=== PATIENT | female | born 1955 | race Caucasian/White ===

== ENCOUNTER 2017-11-24 18:28 | Emergency (ER) | payer OTHER ==
[~2017-11-24] VITALS: Ht 157.5 cm; Wt 84.8 kg
[~2017-11-24 18:28] MED LIST: ATENOLOL25 MG; BENTYL10 MG/ML; FLAGYL375 MG; FLOMAX; KLONOPIN2 MG/TAB; NORVASC5 MG; PROTONIX20 MG
[2017-11-24] MEDS ORDERED: ALDACTAZIDE 251 EACH (19:31)
[2017-11-24] MEDS ORDERED: PEPCID40 MG (19:31)
== END 2017-11-24 23:35 | disposition home or self-care (01) ==
LOC: ER 18:28
DX: K52.89 Other specified noninfective gastroenteritis and colitis (principal)

== ENCOUNTER 2021-03-21 05:30 | Day surgery (SDC) | payer OTHER ==
[~2021-03-21 05:30] MED LIST changes: +ALDACTAZIDE 251 EACH; +PEPCID40 MG; +TENORMIN50 M1 PO; +[UNRECOGNIZED DRUG - OTHER] PO
== END 2021-03-21 12:35 | disposition home or self-care (01) ==
LOC: CIR.AMB 05:30
PROVIDERS: ATTEND Obstetrics & Gynecology
DX: N84.0 Polyp of corpus uteri (principal); Z20.822 Contact with and (suspected) exposure to COVID-19